=== PATIENT | male | born 1950 | race Caucasian/White ===

== ENCOUNTER → 2016-03-29 | Outpatient (REF) ==
[~2016-03-29] MED LIST: PERCOCET 325 MG1 TA2 PO; ZOFRAN ODT8 MG PO
[2016-03-29 12:50] LABS: PSA-TOTAL 0.85 ng/mL (0-4)
[2016-03-29 14:27] LABS: THYROID STIMULATING HORMONE 2.4 uIU/mL (0.465-4.680)
== END ==
LOC: ZLAB.WCH 11:19
PROVIDERS: Internal Medicine
DX: Z01.89 Encounter for other specified special examinations (principal)
CPT/HCPCS: G0103

== ENCOUNTER 2016-05-24 15:00 | Emergency (ER) | payer MEDICARE, BC ==
[~2016-05-24] VITALS: Ht 185.4 cm; Wt 79.5 kg
[2016-05-24 15:15] VITALS: TEMP 97.7
[2016-05-24] MEDS ORDERED: PERCOCET 325 MG1 TA2 PO (16:13)
[2016-05-24] MEDS ORDERED: ZOFRAN ODT8 MG PO (16:13)
[2016-05-24 16:48] VITALS: BP 133/84; PULSE 66
== END 2016-05-24 16:48 | disposition home or self-care (01) ==
LOC: COL.ER 15:00
DX: S42.342A Displaced spiral fracture of shaft of humerus, left arm, initial encounter for closed fracture (principal); W01.10XA Fall on same level from slipping, tripping and stumbling with subsequent striking against unspecified object, initial encounter; Y93.K9 Activity, other involving animal care; Y92.73 Farm field as the place of occurrence of the external cause; M62.81 Muscle weakness (generalized); M21.822 Other specified acquired deformities of left upper arm; B91 Sequelae of poliomyelitis
CPT/HCPCS: J1170; J2405

== ENCOUNTER → 2016-07-27 | Outpatient (CLI) | payer MEDICARE, BC ==
[2016-07-27 14:24] LABS: TOTAL IRON BINDING CAPACITY 308 ug/dL (261-462)
[2016-07-27 14:49] LABS: FERRITIN 20 ng/mL (18-464)
[2016-07-27 15:45] LABS: HEMOGLOBIN 14.6 g/dl (13.5-18.0)
[2016-07-27 16:25] LABS: HEMATOCRIT 43.3 % (42.0-52.0)
== END ==
LOC: COL.LAB 08:28
PROVIDERS: Internal Medicine Gastroenterology
DX: E83.110 Hereditary hemochromatosis (principal)

== ENCOUNTER 2016-09-11 14:00 | Outpatient (RCR) | payer MEDICARE, BC | END 2016-11-26 | disposition still patient (30) | LOC: MKS.ESL.PT | DX: S42.302D Unspecified fracture of shaft of humerus, left arm, subsequent encounter for fracture with routine healing (principal) ==

== ENCOUNTER → 2016-10-13 | Outpatient (CLI) | payer MEDICARE, BC ==
[2016-10-13 10:25] LABS: HEMOGLOBIN 14.9 g/dl (13.5-18.0)
[2016-10-13 10:30] LABS: HEMATOCRIT 44.5 % (42.0-52.0)
== END ==
LOC: COL.LAB 10-12 16:15
PROVIDERS: Internal Medicine Gastroenterology
DX: E83.110 Hereditary hemochromatosis (principal)

== ENCOUNTER → 2017-01-12 | Outpatient (CLI) | payer MEDICARE, BC ==
[2017-01-12 09:32] LABS: HEMOGLOBIN 14.2 g/dl (13.5-18.0)
[2017-01-12 09:34] LABS: HEMATOCRIT 42.7 % (42.0-52.0)
== END ==
LOC: COL.LAB 01-10 11:41
PROVIDERS: Internal Medicine Gastroenterology
DX: E83.110 Hereditary hemochromatosis (principal)

== ENCOUNTER → 2017-04-09 | Outpatient (REF) ==
[2017-04-09 19:34] LABS: PSA-TOTAL 1.09 ng/mL (0-4)
[2017-04-09 19:38] LABS: THYROID STIMULATING HORMONE 2.28 uIU/mL (0.465-4.680)
== END ==
LOC: ZLAB.WCH 18:21
PROVIDERS: Internal Medicine
DX: Z01.89 Encounter for other specified special examinations (principal)
CPT/HCPCS: G0103

== ENCOUNTER → 2017-07-11 | Outpatient (CLI) | payer MEDICARE, BC ==
[2017-07-11 14:00] LABS: HEMOGLOBIN 13.5 g/dl (13.5-18.0)
[2017-07-11 14:04] LABS: HEMATOCRIT 40.5 % (42.0-52.0)
== END ==
LOC: COL.LAB 04-18 15:08
PROVIDERS: Internal Medicine
DX: E83.110 Hereditary hemochromatosis (principal)

== ENCOUNTER → 2017-10-10 | Outpatient (CLI) | payer MEDICARE, BC ==
[2017-10-10 10:48] LABS: HEMOGLOBIN 13.5 g/dl (13.5-18.0)
[2017-10-10 11:01] LABS: IRON,SERUM 68 ug/dL (35-150)
[2017-10-10 11:02] LABS: HEMATOCRIT 40.6 % (42.0-52.0)
[2017-10-10 11:21] LABS: TOTAL IRON BINDING CAPACITY 276 ug/dL (261-462)
[2017-10-10 11:37] LABS: FERRITIN 13 ng/mL (18-464)
== END ==
LOC: COL.LAB 10:07
PROVIDERS: Internal Medicine
DX: E83.110 Hereditary hemochromatosis (principal)

== ENCOUNTER → 2018-04-07 | Outpatient (REF) ==
[2018-04-07 10:43] LABS: PSA-TOTAL 1.27 ng/mL (0-4)
== END ==
LOC: ZLAB.WCH 09:43
PROVIDERS: Internal Medicine
DX: Z01.89 Encounter for other specified special examinations (principal)
CPT/HCPCS: G0103

== ENCOUNTER → 2018-08-23 | Outpatient (CLI) | payer MEDICARE, BC | LOC: COL.RAD 08:43 | DX: R51 Headache (principal) ==